=== PATIENT | male | born 1990 | race Two or more races ===

== ENCOUNTER 2021-09-05 02:11 | Emergency (ER) | payer MEDICAID ==
[~2021-09-05] VITALS: Ht 170.2 cm; Wt 75.0 kg
[2021-09-05 02:18] VITALS: BP 153/104
== END 2021-09-05 10:52 | disposition left against medical advice (07) ==
LOC: ER 02:11
DX: R10.9 Unspecified abdominal pain (principal); Z53.21 Procedure and treatment not carried out due to patient leaving prior to being seen by health care provider